=== PATIENT | female | born 1960 | race African-American/Black ===

== ENCOUNTER 2023-12-03 05:50 | Inpatient (IN) | payer OTHER ==
[2023-12-03] MEDS: ACETAMINOPHEN 1000 MG/100 ML BAG IVPB ONE (06:57)
[2023-12-03 07:09] LABS: BASO % 0.4 % (0-2.0); EOS % 0.9 % (0-4.5); HEMATOCRIT 35.1 % (32.4-45.2); HEMOGLOBIN 11.7 GM/dL (10.7-15.3); LYMPH % 6.4 % (8-40); MCH 28.9 pg (25.7-33.7); MCHC 33.4 g/dl (32.0-36.0); MEAN CELL VOLUME 86.4 fl (80-96); MONO % 6.4 % (3.8-10.2); NEUT % 85.9 % (42.8-82.8); PLATELET COUNT 313 10^3/uL (134-434); RBC 4.06 M/mm3 (3.60-5.2); RDW 17.3 % (11.6-15.6); WHITE BLOOD COUNT 8.5 K/mm3 (4.0-10.0)
[2023-12-03 07:13] LABS: INR 0.94 (0.83-1.09); PROTHROMBIN TIME (PATIENT) 10.8 SEC (9.7-13.0)
[2023-12-03 07:15] LABS: ACTIVATED PTT 27.7 SECONDS (25.2-36.5)
[2023-12-03 07:23] LABS: POTASSIUM 4.1 mmol/L (3.5-5.1)
[2023-12-03 07:25] LABS: CALCIUM 9.3 mg/dL (8.5-10.1)
[2023-12-03 07:26] LABS: ALBUMIN 3.1 g/dl (3.4-5.0); BLOOD UREA NITROGEN 8.5 mg/dL (7-18); MAGNESIUM 2.3 mg/dL (1.8-2.4)
[2023-12-03 07:29] LABS: CREATININE 0.5 mg/dL (0.55-1.3)
[2023-12-03 07:30] LABS: BILIRUBIN,TOTAL 0.7 mg/dL (0.2-1); TOT PROT 7.3 g/dl (6.4-8.2)
[2023-12-03] MEDS ORDERED: ONDANSETRON 4 MG/2 ML VIAL ONE (08:22)
[2023-12-03] MEDS: SODIUM CHLORIDE 0.9% 500 ML INFUS.BAG IV ONE (08:39)
[2023-12-03] MEDS: ONDANSETRON 4 MG/2 ML VIAL IVPUSH ONE (08:39)
[2023-12-03 09:49] LABS: EPI CELLS 19 /uL (0-25.1); HYALINE CASTS 2 /uL (0-3.1); PH,URINE 7.5 (5.0-8.0); URINE APPEARANCE CLEAR; URINE BACTERIA 9 /uL (0-1359); URINE BILIRUBIN NEGATIVE (NEGATIVE); URINE COLOR YELLOW; URINE GLUCOSE (UA) NEGATIVE (NEGATIVE); URINE KETONE 1+ (NEGATIVE); URINE LEUK ESTERASE 1+ (NEGATIVE); URINE NITRITE NEGATIVE (NEGATIVE); URINE PROTEIN TRACE (NEGATIVE); URINE RBC 391 /uL (0-23.9); URINE WBC 65 /uL (0-25.8)
[2023-12-03] MEDS: MAG HYDROX/AL HYDROX/SIMETH 30 ML UNIT-DOSE CUP PO ONE (14:07)
[2023-12-03] MEDS ORDERED: MAG HYDROX/AL HYDROX/SIMETH 30 ML UNIT-DOSE CUP ONE (14:13)
[2023-12-03] MEDS: METOCLOPRAMIDE HCL INJECTION 10 MG/2 ML VIAL IVPUSH PRN (15:44)
[2023-12-03] MEDS ORDERED: METOCLOPRAMIDE HCL INJECTION 10 MG/2 ML VIAL ONE ×2 (15:45→22:59)
[2023-12-03] MEDS: DEXTROSE 5%-0.45% SALINE 1,000 ML IV SCH (16:08)
[2023-12-03] MEDS: ACETAMINOPHEN 1000 MG/100 ML BAG IVPB PRN (17:45)
[2023-12-03] MEDS ORDERED: ACETAMINOPHEN INJECTION 100 ML IVPB ONE (17:47)
[2023-12-03] MEDS ORDERED: FAMOTIDINE 20 MG/50 ML IVPB 20 MG/50 ML MG IVPB ONE (21:47)
[2023-12-03] MEDS ORDERED: APIXABAN 2.5 MG TABLET ONE (21:47)
[2023-12-03] MEDS ORDERED: IBUPROFEN 600 MG TABLET (FP) PO ONE (21:47)
[2023-12-03] MEDS ORDERED: GABAPENTIN 300 MG CAPSULE ONE (21:47)
[2023-12-03] MEDS: APIXABAN 2.5 MG TABLET PO SCH (21:57)
[2023-12-03] MEDS: IBUPROFEN 600 MG TABLET (FP) PO PRN (21:57)
[2023-12-03] MEDS: FAMOTIDINE 20 MG/50 ML IVPB 20 MG/50 ML MG IVPB ONE (21:57)
[2023-12-03] MEDS: GABAPENTIN 300 MG CAPSULE PO SCH (21:58)
[2023-12-04 06:32] VITALS: BMI 23.7
[2023-12-04 08:04] LABS: POTASSIUM 3.3 mmol/L (3.5-5.1)
[2023-12-04 08:06] LABS: CALCIUM 8.2 mg/dL (8.5-10.1)
[2023-12-04 08:10] LABS: CREATININE 0.4 mg/dL (0.55-1.3); PHOSPHOROUS 3.3 mg/dL (2.5-4.9)
[2023-12-04 08:24] LABS: HEMATOCRIT 25.2 % (32.4-45.2); HEMOGLOBIN 8.9 GM/dL (10.7-15.3); MCH 29.9 pg (25.7-33.7); MCHC 35.4 g/dl (32.0-36.0); MEAN CELL VOLUME 84.4 fl (80-96); MEAN PLT VOLUME 6.8 fl (7.5-11.1); PLATELET COUNT 307 10^3/uL (134-434); RBC 2.98 M/mm3 (3.60-5.2); RDW 16.8 % (11.6-15.6); WHITE BLOOD COUNT 4.6 K/mm3 (4.0-10.0)
[2023-12-04] MEDS: KCL 10 MEQ IVPB 10 MEQ/100 ML INFUS.BAG IVPB SCH (09:57)
[2023-12-04] MEDS: KCL 20 MEQ PREMIX BAG 20 MEQ/100 ML INFUS.BAG IVPB SCH (13:34)
[2023-12-04] MEDS: amLODIPine BESYLATE 5 MG TABLET (FP) PO ONE (17:34)
[2023-12-04] MEDS: MAGNESIUM HYDROX 2400MG/30ML ORAL SUSPENSION 30 ML CUP PO PRN (17:36)
[2023-12-04] MEDS ORDERED: METOCLOPRAMIDE HCL INJECTION 10 MG/2 ML VIAL IVPUSH PRN (17:52)
[2023-12-04] MEDS ORDERED: ACETAMINOPHEN 1000 MG/100 ML BAG IVPB PRN (17:52)
[2023-12-04] MEDS: POTASSIUM CHLORIDE ORAL LIQUID 20 MEQ/15 ML PO ONE (18:36)
[2023-12-04] MEDS: APIXABAN 2.5 MG TABLET PO SCH (21:28)
[2023-12-04] MEDS: GABAPENTIN 300 MG CAPSULE PO SCH (21:28)
[2023-12-05] MEDS: DEXTROSE 5%-0.45% SALINE 1,000 ML IV SCH (01:07)
[2023-12-05] MEDS: MAGNESIUM HYDROX 2400MG/30ML ORAL SUSPENSION 30 ML CUP PO PRN (04:42)
[2023-12-05 09:50] LABS: HEMOGLOBIN 10.1 GM/dL (10.7-15.3); MCH 29.2 pg (25.7-33.7); MCHC 33.6 g/dl (32.0-36.0); MEAN CELL VOLUME 86.9 fl (80-96); MEAN PLT VOLUME 6.6 fl (7.5-11.1); PLATELET COUNT 466 10^3/uL (134-434); RBC 3.45 M/mm3 (3.60-5.2); RDW 16.3 % (11.6-15.6); WHITE BLOOD COUNT 5.9 K/mm3 (4.0-10.0)
[2023-12-05 10:15] LABS: POTASSIUM 3.6 mmol/L (3.5-5.1)
[2023-12-05 10:28] LABS: ALBUMIN 2.7 g/dl (3.4-5.0)
[2023-12-05 10:29] LABS: CALCIUM 8.6 mg/dL (8.5-10.1); MAGNESIUM 2.3 mg/dL (1.8-2.4)
[2023-12-05 10:31] LABS: CREATININE 0.4 mg/dL (0.55-1.3); PHOSPHOROUS 2.8 mg/dL (2.5-4.9)
[2023-12-05 10:32] LABS: BILIRUBIN,TOTAL 0.5 mg/dL (0.2-1); TOT PROT 6.8 g/dl (6.4-8.2)
[2023-12-05] MEDS: amLODIPine BESYLATE 5 MG TABLET (FP) PO SCH (10:37)
[2023-12-05 19:41] VITALS: RESP 20
[2023-12-05] MEDS: ONDANSETRON 4 MG/2 ML VIAL IVPUSH ONE (20:17)
[2023-12-06] MEDS: ONDANSETRON 4 MG/2 ML VIAL IVPUSH PRN (03:30)
[2023-12-06 08:02] LABS: BASO % 0.1 % (0-2.0); EOS % 0.3 % (0-4.5); HEMOGLOBIN 9.7 GM/dL (10.7-15.3); LYMPH % 10.3 % (8-40); MCH 28.6 pg (25.7-33.7); MCHC 33.3 g/dl (32.0-36.0); MEAN CELL VOLUME 85.9 fl (80-96); MEAN PLT VOLUME 6.3 fl (7.5-11.1); MONO % 11.9 % (3.8-10.2); NEUT % 77.4 % (42.8-82.8); PLATELET COUNT 561 10^3/uL (134-434); RBC 3.37 M/mm3 (3.60-5.2); RDW 16.2 % (11.6-15.6)
[2023-12-06 08:18] LABS: POTASSIUM 3.8 mmol/L (3.5-5.1)
[2023-12-06 08:22] LABS: ALBUMIN 2.6 g/dl (3.4-5.0)
[2023-12-06 08:23] LABS: BLOOD UREA NITROGEN 7.8 mg/dL (7-18)
[2023-12-06 08:24] LABS: CALCIUM 8.8 mg/dL (8.5-10.1); MAGNESIUM 2.7 mg/dL (1.8-2.4)
[2023-12-06 08:26] LABS: CREATININE 0.4 mg/dL (0.55-1.3)
[2023-12-06 08:27] LABS: BILIRUBIN,TOTAL 0.4 mg/dL (0.2-1); TOT PROT 6.4 g/dl (6.4-8.2)
[2023-12-06 15:48] VITALS: BP 147/76; PULSE 81; TEMP 98.2
== END 2023-12-06 17:04 | disposition home or self-care (01) | DRG 252 ==
LOC: JER 05:50 → JERBED 14:05 → OBSVTOIN 15:38 → J4W 23:45 → J8W 12-04 17:52
PROVIDERS: ADMIT Internal Medicine; ATTEND Nurse Practitioner Family
DX: K91.89 Other postprocedural complications and disorders of digestive system (principal); C20 Malignant neoplasm of rectum; C55 Malignant neoplasm of uterus, part unspecified; I10 Essential (primary) hypertension; K56.7 Ileus, unspecified; Z93.3 Colostomy status; Y83.8 Other surgical procedures as the cause of abnormal reaction of the patient, or of later complication, without mention of misadventure at the time of the procedure; K21.9 Gastro-esophageal reflux disease without esophagitis; E87.6 Hypokalemia; Z79.01 Long term (current) use of anticoagulants
CPT/HCPCS: 36415; 71045-TC-FY; 74018-TC-FY; 74177-TC; 80048; 80053; 81003; 82962; 83605; 83735; 84100; 84484; 85025; 85027; 85610; 85730; 86850; 86900; 86901; 93005; 93010; 99285-25; G0378; J0131; Q9967